=== PATIENT | female | born 1975 | race African-American/Black ===

== ENCOUNTER 2019-05-10 23:39 | Emergency (ER) | payer OTHER ==
[~2019-05-10] VITALS: Ht 144.8 cm; Wt 67.6 kg
[2019-05-11 00:14] LABS: ABSOLUTE NEUTROPHILS 3.6 thou/uL (1.4-8.2); EOSINOPHILS 1.4 % (0.0-3.0); HEMOGLOBIN 13.1 gm/dL (12.0-15.0); LYMPHOCYTES 53.4 % (24.0-44.0); MCH 29.8 pg (26.0-34.0); MCHC 33.7 g/dL (28.0-37.0); MCV 88.4 fL (80.0-100.0); MONOCYTES 7.2 % (1.0-8.0); PLATELET COUNT 329 thou/uL (150-400); RBC 4.41 mil/uL (4.20-5.00); RDW 13.9 % (10.5-14.5); WBC 9.7 thou/uL (4.0-11.0)
[2019-05-11 00:22] LABS: CALCIUM 9.3 mg/dL (8.5-10.1); CREATININE 1.2 mg/dL (0.6-1.0); POTASSIUM 3.6 mmol/L (3.5-5.1)
[2019-05-11 00:28] LABS: ALBUMIN 3.9 g/dL (3.4-5.0); TOTAL BILIRUBIN 0.2 mg/dL (<0.1-1.0); TOTAL PROTEIN 9.1 g/dL (6.4-8.2)
[2019-05-11] MEDS ORDERED: REGLAN 10 MG TA10 MG PO (01:28)
[2019-05-11 01:49] VITALS: BP 113/26
== END 2019-05-11 01:50 | disposition home or self-care (01) ==
LOC: ER 23:39
PROVIDERS: Emergency Medicine
DX: R51 Headache (principal); E78.00 Pure hypercholesterolemia, unspecified

== ENCOUNTER 2020-01-11 23:52 | Emergency (ER) | payer OTHER ==
[~2020-01-11] VITALS: Ht 144.8 cm; Wt 81.7 kg
--- NOTE | ~2020-01-11 | EMS ---
[facility] [address] [place] [address] EMS Patient Care Report Name: MERCEDES QUEVEDO Room #: REG [facility].#: [id number] Admission: 01/11/20 Attend Phys: Discharge: Date of : 75 Report #: [id number] THIS REPORT FOR: //name// Report Transmitted: 01/12/2020 01:28 EMS Care Summary [place], [place]/[facility] Incident [id number] @ 01/11/2020 23:01 Incident Location [id number] [place] [address] Patient MERCEDES QUEVEDO Female, 44 Years 1975 Patient Address [id number] [place] [address] Patient History Seizures, Chief Complaint Fever Disposition Transported No Lights/[place] Dispatch Reason Convulsions/Seizure Transported To [facility] Narrative Arrived on the scene for a 44 y/o female that is lying in a bed in the back of the house. Pt isn't communicating verbally at all but is shaking her head yes and no to those types of questions. Another female is lying next to her and said that the Pt was at a motel with her since Sunday and just got back earlier tonight. Pt is wearing a hoodie and is shivering and saying that she is cold. Pt is warm to the touch. Pt does not have a cough. Pt is very warm to the touch. Went back to the ambulance and put on a gown and got a mask for the Pt. Put a mask on the Pt and had family help me get the Pt from the [facility] [address] [place] [address] EMS Patient Care Report Name: MERCEDES QUEVEDO Room #: REG [facility].#: [id number] Admission: 01/11/20 Attend Phys: Discharge: Date of : 75 Report #: [id number] bed onto the stair chair. Wheeled the Pt from the house to the cot. Able to get the Pt from the chair to the cot with no help from the Pt. Kept my other crew members back due to possible Covid-19. See Pt Assessment Possible Covid-19 See Flow Chart. Transported to the hospital. Enroute, Pt just lied on the cot and still giving vague answers. No other changes or incidents. Transferred Pt from the cot to the bed. Transferred care to receiving facility. Initial Vitals @23:45P: 96,R: 16,BP: 126/81,Pain: 0/10,GCS: 13,CO: 12,SpO2: 99,Revised Trauma: 12, @23:29P: 102,R: 16,BP: 142/74,GCS: 13,Temp: 100.3F,CO: 7,SpO2: 99,Revised Trauma: 12, Assessments @23:10MENTAL:Person Oriented,Time Oriented,Event Oriented,Place Oriented,SKIN:Hot,HEENT:Head/Face: No Abnormalities,Eyes: No Abnormalities,Neck/Airway: No Abnormalities,LUNG SOUNDS:General: No Abnormalities,Left Upper: No Abnormalities,Right Upper: No Abnormalities,Left Lower: No Abnormalities,Right Lower: No Abnormalities,ABDOMEN:General: No Abnormalities,Left Upper: No Abnormalities,Right Upper: No Abnormalities,Left Lower: No Abnormalities,Right Lower: No Abnormalities,PELVIS//GI:No Abnormalities,EXTREMITIES:Left Arm: No Abnormalities,Right Arm: No Abnormalities,Left Leg: No Abnormalities,Right Leg: No Abnormalities,PULSE:Radial: 2+ Normal,NEURO:Weakness Left-Sided,Weakness Right-Sided, Impression COVID-19 - Suspected - no known exposure Procedures @23:10ALS AssessmentResponse: UnchangedSucceeded Timeline 23:00,Call Received 23:00,Dispatch Notified 23:01,Dispatched 23:03,En Route 23:10,On Scene 23:10,At Patient 23:10,ALS Assessment,Response: UnchangedSucceeded, 23:29,Depart Scene [facility] [address] [place] [address] EMS Patient Care Report Name: MERCEDES QUEVEDO Room #: REG [facility]#: [id number] Admission: 01/11/20 Attend Phys: Discharge: Date of : 75 Report #: [id number] 23:29,BP: 142/74 M,PULSE: 102,RR: 16 R,SPO2: 99 Ox,ETCO2: ,BG: ,PAIN: ,GCS: 13, 23:45,BP: 126/81 M,PULSE: 96,RR: 16 R,SPO2: 99 Ox,ETCO2: ,BG: ,PAIN: 0,GCS: 13, 23:45,At Destination 00:07,Call Closed Disclaimer v1.1 Copyright 2020 [employer] This EMS Care Summary contains data elements from the applicable legal record (which may be displayed differently). It is designed to provide pertinent information for the following purposes: continuity of care, clinical quality, and state data reporting. The complete legal record is available to ED staff and administrators of the receiving hospital in [employer]'s Patient Tracker. All data is provided "as is."
--- NOTE | ~2020-01-11 | EMS ---
[facility] [address] [place] [address] EMS Patient Care Report Name: MERCEDES QUEVEDO [id number] Admission: 01/11/20 Attend Phys: Discharge: Date of : 75 Report #: [id number] THIS REPORT FOR: //name// Report Transmitted: 01/12/2020 01:16 EMS Care Summary [place], [place]/[facility] Incident [id number] @ 01/11/2020 23:01 Incident Location [id number] [place] [address] Patient MERCEDES QUEVEDO Female, 44 Years 1975 Patient Address [id number] [place] [address] Patient History Seizures, Chief Complaint Fever Disposition Transported No Lights/[place] Dispatch Reason Convulsions/Seizure Transported To [facility] Narrative Arrived on the scene for a 44 y/o female that is lying in a bed in the back of the house. Pt isn't communicating verbally at all but is shaking her head yes and no to those types of questions. Another female is lying next to her and said that the Pt was at a motel with her since Sunday and just got back earlier tonight. Pt is wearing a hoodie and is shivering and saying that she is cold. Pt is warm to the touch. Pt does not have a cough. Pt is very warm to the touch. Went back to the ambulance and put on a gown and got a mask for the Pt. Put a mask on the Pt and had family help me get the Pt from the [facility] [address] [place] [address] EMS Patient Care Report Name: MERCEDES QUEVEDO Room #: REG [facility].#: [id number] Admission: 01/11/20 Attend Phys: Discharge: Date of : 75 Report #: [id number] bed onto the stair chair. Wheeled the Pt from the house to the cot. Able to get the Pt from the chair to the cot with no help from the Pt. Kept my other crew members back due to possible Covid-19. See Pt Assessment Possible Covid-19 See Flow Chart. Transported to the hospital. Enroute, Pt just lied on the cot and still giving vague answers. No other changes or incidents. Transferred Pt from the cot to the bed. Transferred care to receiving facility. Initial Vitals @23:45P: 96,R: 16,BP: 126/81,Pain: 0/10,GCS: 13,CO: 12,SpO2: 99,Revised Trauma: 12, @23:29P: 102,R: 16,BP: 142/74,GCS: 13,Temp: 100.3F,CO: 7,SpO2: 99,Revised Trauma: 12, Assessments @23:10MENTAL:Person Oriented,Time Oriented,Event Oriented,Place Oriented,SKIN:Hot,HEENT:Head/Face: No Abnormalities,Eyes: No Abnormalities,Neck/Airway: No Abnormalities,LUNG SOUNDS:General: No Abnormalities,Left Upper: No Abnormalities,Right Upper: No Abnormalities,Left Lower: No Abnormalities,Right Lower: No Abnormalities,ABDOMEN:General: No Abnormalities,Left Upper: No Abnormalities,Right Upper: No Abnormalities,Left Lower: No Abnormalities,Right Lower: No Abnormalities,PELVIS//GI:No Abnormalities,EXTREMITIES:Left Arm: No Abnormalities,Right Arm: No Abnormalities,Left Leg: No Abnormalities,Right Leg: No Abnormalities,PULSE:Radial: 2+ Normal,NEURO:Weakness Left-Sided,Weakness Right-Sided, Impression COVID-19 - Suspected - no known exposure Procedures @23:10ALS AssessmentResponse: UnchangedSucceeded Timeline 23:00,Call Received 23:00,Dispatch Notified 23:01,Dispatched 23:03,En Route 23:10,On Scene 23:10,At Patient 23:10,ALS Assessment,Response: UnchangedSucceeded, 23:29,Depart Scene [facility] [address] [place] [address] EMS Patient Care Report Name: MERCEDES QUEVEDO Room #: REG [facility]#: [id number] Admission: 01/11/20 Attend Phys: Discharge: Date of : 75 Report #: [id number] 23:29,BP: 142/74 M,PULSE: 102,RR: 16 R,SPO2: 99 Ox,ETCO2: ,BG: ,PAIN: ,GCS: 13, 23:45,BP: 126/81 M,PULSE: 96,RR: 16 R,SPO2: 99 Ox,ETCO2: ,BG: ,PAIN: 0,GCS: 13, 23:45,At Destination 00:07,Call Closed Disclaimer v1.1 Copyright 2020 [employer] This EMS Care Summary contains data elements from the applicable legal record (which may be displayed differently). It is designed to provide pertinent information for the following purposes: continuity of care, clinical quality, and state data reporting. The complete legal record is available to ED staff and administrators of the receiving hospital in [employer]'s Patient Tracker. All data is provided "as is."
[~2020-01-11 23:52] MED LIST: REGLAN 10 MG TA10 MG PO
[2020-01-12 00:39] LABS: HEMATOCRIT 37.9 % (37.0-47.0); HEMOGLOBIN 12.5 gm/dL (12.0-15.0); MCH 29.8 pg (26.0-34.0); MCV 90.3 fL (80.0-100.0); PLATELET COUNT 303 thou/uL (150-400); RDW 14.6 % (10.5-14.5); WBC 10.1 thou/uL (4.0-11.0)
[2020-01-12 00:47] LABS: CREATININE 1.2 mg/dL (0.6-1.0); POTASSIUM 3.2 mmol/L (3.5-5.1)
[2020-01-12 00:53] LABS: ALBUMIN 3.6 g/dL (3.4-5.0); TOTAL BILIRUBIN 0.2 mg/dL (<0.1-1.0)
[2020-01-12 01:13] LABS: URINE BILIRUBIN NEGATIVE (Negative); URINE BLOOD TRACE (Negative); URINE CLARITY CLEAR; URINE COLOR YELLOW; URINE GLUCOSE-RANDOM* NEGATIVE (Negative); URINE KETONES NEGATIVE (Negative); URINE LEUKOCYTES-REFLEX TRACE (Negative); URINE NITRITE-REFLEX NEGATIVE (Negative); URINE PROTEIN (DIPSTICK) NEGATIVE (Negative); URINE SPECIFIC GRAVITY 1.015 (1.005-1.035); URINE UROBILINOGEN 0.2 E.U./dl (0.2-1.0)
[2020-01-12 01:24] LABS: ABSOLUTE NEUTROPHILS 2.3 thou/uL (1.4-8.2); ATYPICAL LYMPHS 4 %
[2020-01-12 02:45] VITALS: BP 135/78
[2020-01-12] MEDS ORDERED: ZOFRAN ODT4 MG PO (02:47)
[2020-01-12] MEDS ORDERED: VENTOLIN HFA 1818 GM INH (02:47)
[2020-01-12] MEDS ORDERED: TYLENOL EXTRA500 MG PO (02:47)
== END 2020-01-12 03:10 | disposition home or self-care (01) ==
LOC: ER 23:52
PROVIDERS: Emergency Medicine Emergency Medical Services
DX: J06.9 Acute upper respiratory infection, unspecified (principal); R11.2 Nausea with vomiting, unspecified; R41.0 Disorientation, unspecified; E78.00 Pure hypercholesterolemia, unspecified; G43.909 Migraine, unspecified, not intractable, without status migrainosus; I10 Essential (primary) hypertension

== ENCOUNTER 2020-02-19 03:46 | Emergency (ER) | payer OTHER ==
[~2020-02-19] VITALS: Ht 144.8 cm; Wt 84.8 kg
[~2020-02-19 03:46] MED LIST changes: +TYLENOL EXTRA500 MG PO; +VENTOLIN HFA 1818 GM INH; +ZOFRAN ODT4 MG PO
[2020-02-19] MEDS ORDERED: POTASSIUM CHLO10 ME1 PO (04:09)
[2020-02-19] MEDS ORDERED: levetiracetam PO (04:11)
[2020-02-19 04:51] VITALS: BP 134/73
[2020-02-19] MEDS ORDERED: VENTOLIN HFA 1818 GM INH (05:01)
== END 2020-02-19 05:21 | disposition home or self-care (01) ==
LOC: ER 03:46
DX: J45.901 Unspecified asthma with (acute) exacerbation (principal); I10 Essential (primary) hypertension; G43.909 Migraine, unspecified, not intractable, without status migrainosus; E78.00 Pure hypercholesterolemia, unspecified

== ENCOUNTER 2020-04-06 20:14 | Emergency (ER) | payer OTHER ==
[~2020-04-06] VITALS: Ht 144.8 cm; Wt 84.8 kg
--- NOTE | ~2020-04-06 | EEG ---
[facility] [place] [address] ELECTROENCEPHALOGRAM Name: MERCEDES QUEVEDO Room #: DEP [facility].#: [id number] Admission: 04/06/20 Attend Phys: Discharge: 04/07/20 Date of : 75 Report #: [id number] THIS REPORT FOR: //name// CC: FAM alice Hughes DATE OF SERVICE: 04/06/2020 This patient is being evaluated for seizure. EEG was done by placing the electrode by standard 10-20 system of electrode placement. Both referential and sequential montages were used for recording. Background activity in this patient's EEG appeared to be about 10 Hz and 30 microvolt. Photic stimulation is unremarkable. Throughout the record, no active epileptiform activity was noticed. IMPRESSION: In spite of the patient's history of __, the EEG does not show any active epileptiform activity. Thank you very much for this referral. By: 08 11 Hussein Ritchie MD /nt
--- NOTE | ~2020-04-06 | EMS ---
[address] [address] EMS Patient Care Report Name: MERCEDES QUEVEDO [id number] Admission: 04/06/20 Attend Phys: Discharge: Date of : 75 Report #: [id number] THIS REPORT FOR: //name// Report Transmitted: 04/06/2020 19:50 EMS Care Summary [place], [place]/[facility] Incident [id number] @ 04/06/2020 19:36 Incident Location [id number] [place] [address] Patient MERCEDES QUEVEDO Female, 44 Years 1975 Patient Address [address] [place] [address] Patient History Asthma,Seizures,Migraine, Patient Allergies Other drug allergy, Patient Medications Potassium, Levetiracetam, Lamotrigine, Chief Complaint SEIZURE ACTIVITY Disposition Transported No Lights/[place] Dispatch Reason Convulsions/Seizure Transported To [facility] Narrative UPON ARRIVAL PT SITTING UPRIGHT IN CHAIR CONSCIOUS NOT ALERT. PT UNABLE TO ANSWER ANY QUESTIONS OR FOLLOW COMMANDS. FAMILY STATES THIS IS WHAT PT GETS LIKE BEFORE SHE HAS SEIZURES. PT HAS ALSO BEEN C/O A HEADACHE SINCE LAST NIGHT. PT LIFTED TO COT. PT RESPIRATIONS NORMAL BUT SHALLOW, PT MAINTAINS [address] [address] EMS Patient Care Report Name: MERCEDES QUEVEDO Room #: REG [facility]#: [id number] Admission: 04/06/20 Attend Phys: Discharge: Date of : 75 Report #: [id number] THROUGHOUT TRANSPORT. PT HAS SLIGHT TWITCHING IN ALL EXTREMITIES. PT TRANSPORTED TO [facility]. Initial Vitals @19:52P: 112,BP: 148/101, @20:02P: 111,R: 30,BP: 159/99,GCS: 8,CO: 14,SpO2: 99,Revised Trauma: 9, @19:46P: 134,R: 30,BP: 171/116,Pain: 0/10,GCS: 8,Glucose: 118,SpO2: 99,Revised Trauma: 9, Assessments @19:42MENTAL:Unresponsive,SKIN:No Abnormalities,HEENT:Head/Face: No Abnormalities,Neck/Airway: No Abnormalities,LUNG SOUNDS:General: No Abnormalities,ABDOMEN:General: No Abnormalities,PELVIS//GI:EXTREMITIES:Left Arm: No Abnormalities,Right Arm: No Abnormalities,Left Leg: No Abnormalities,Right Leg: No Abnormalities,PULSE:Radial: 2+ Normal,NEURO:Seizures,Tremors, Impression Seizures Procedures @19:42ALS AssessmentResponse: UnchangedSucceeded@19:50Saline Lock 0cc (20 ga) Site: Antecubital-LeftResponse: UnchangedFailed@19:503-Lead ECGResponse: UnchangedSucceeded@19:50Saline Lock 0cc (20 ga) Site: Antecubital-RightResponse: UnchangedFailed Timeline 19:35,Call Received 19:35,Dispatch Notified 19:36,Dispatched 19:37,En Route 19:40,On Scene 19:41,At Patient 19:42,ALS Assessment,Response: UnchangedSucceeded, 19:46,BP: 171/116 M,PULSE: 134,RR: 30 R,SPO2: 99 Ox,ETCO2: ,B,PAIN: 0,GCS: 8, 19:50,Saline Lock 0cc 20 ga Site: Antecubital-Left,Response: UnchangedFailed, 19:50,Saline Lock 0cc 20 ga Site: Antecubital-Right,Response: UnchangedFailed, 19:50,3-Lead ECG,Response: UnchangedSucceeded, 19:52,BP: 148/101 M,PULSE: 112,RR: R,SPO2: Ox,ETCO2: ,BG: ,PAIN: ,GCS: , 19:52,Depart Scene 20:02,BP: 159/99 M,PULSE: 111,RR: 30 R,SPO2: 99 Ox,ETCO2: ,BG: ,PAIN: ,GCS: 8, 20:06,At Destination 20:32,Call Closed Disclaimer [address] [address] EMS Patient Care Report Name: MERCEDES QUEVEDO Room #: REG [facility]#: [id number] Admission: 04/06/20 Attend Phys: Discharge: Date of : 75 Report #: [id number] v1.1 Copyright 2020 [employer] This EMS Care Summary contains data elements from the applicable legal record (which may be displayed differently). It is designed to provide pertinent information for the following purposes: continuity of care, clinical quality, and state data reporting. The complete legal record is available to ED staff and administrators of the receiving hospital in [employer]'s Patient Tracker. All data is provided "as is."
[~2020-04-06 20:14] MED LIST changes: +POTASSIUM CHLO10 ME1 PO; +levetiracetam PO
[2020-04-06 20:43] LABS: HEMATOCRIT 41.5 % (37.0-47.0); HEMOGLOBIN 13.8 gm/dL (12.0-15.0); MCH 30.1 pg (26.0-34.0); MCHC 33.3 g/dL (28.0-37.0); MCV 90.4 fL (80.0-100.0); PLATELET COUNT 329 thou/uL (150-400); RBC 4.59 mil/uL (4.20-5.00); RDW 14.1 % (10.5-14.5); WBC 8.7 thou/uL (4.0-11.0)
[2020-04-06 20:53] LABS: ANION GAP 9 mmol/L (7-16); BUN 9 mg/dL (7-18); CALCIUM 9.3 mg/dL (8.5-10.1); CHLORIDE 102 mmol/L (98-107); CO2 27 mmol/L (21-32); CREATININE 1.4 mg/dL (0.6-1.0); GLUCOSE 105 mg/dL (74-106); POTASSIUM 3.2 mmol/L (3.5-5.1); SODIUM 138 mmol/L (136-145)
[2020-04-06 21:03] LABS: ALBUMIN 3.9 g/dL (3.4-5.0); SGOT 15 U/L (15-37); SGPT 14 U/L (30-65); TOTAL BILIRUBIN 0.4 mg/dL (0.2-1.0); TOTAL PROTEIN 8.9 g/dL (6.4-8.2); TROPONIN-I <0.06 ng/mL (<0.06)
[2020-04-06 21:30] LABS: URINE BILIRUBIN NEGATIVE (Negative); URINE BLOOD NEGATIVE (Negative); URINE CLARITY CLEAR; URINE COLOR YELLOW; URINE GLUCOSE-RANDOM* NEGATIVE (Negative); URINE KETONES NEGATIVE (Negative); URINE LEUKOCYTES-REFLEX NEGATIVE (Negative); URINE NITRITE-REFLEX NEGATIVE (Negative); URINE PROTEIN (DIPSTICK) TRACE (Negative)
[2020-04-06] MEDS ORDERED: LAMOTRIGINE250 MG PO (21:30)
[2020-04-06 21:34] LABS: ABSOLUTE NEUTROPHILS 2.2 thou/uL (1.4-8.2); ANISOCYTOSIS 1+
[2020-04-06 22:04] LABS: AMP/METHAMP Negative (Negative); BARBITURATES Negative (Negative); BENZODIAZEPINES Negative (Negative); COCAINE Negative (Negative); METHADONE Negative (Negative); OPIATES Negative (Negative); PCP Negative (Negative)
[2020-04-07 03:10] VITALS: BP 120/79
--- NOTE | 2020-04-07 07:47 | EKG ---
[facility] [place] [address] ELECTROCARDIOGRAM REPORT Name: MERCEDES QUEVEDO Room #: DEP [facility]#: [id number] Admission: 04/06/20 Attend Phys: Discharge: 04/07/20 Date of : 75 Report #: [id number] THIS REPORT FOR: cc: [facility] - Clinic physician unknown [facility] - Clinic physician unknown Diego Em MD [facility] THIS REPORT FOR: //name// [facility] ED Test Date: 2020-04-06 Test Time: 21:11:19 Pat Name: MERCEDES QUEVEDO Department: Room: Gender: Press Manager: [place] [id number] : 1975 Requested By: Tomeka Hughes Order Number: [id number] MD: Diego Em Measurements Intervals [place] Rate: 105 P: 44 WI: 174 QRS: 55 QRSD: 92 T: 12 QT: 330 QTc: 437 Interpretive Statements Sinus tachycardia Otherwise no significant abnormality No previous ECG available for comparison Electronically Signed On 04-07-2020 7:47:19 CDT by Diego Em [email or web address] <ELECTRONICALLY SIGNED> By: Diego Em MD, [facility] 04/07/20 0747 10 10 Diego Em MD, FAC /EPI
== END 2020-04-07 03:11 | disposition short-term general hospital (02) ==
LOC: ER 20:14
PROVIDERS: Student in an Organized Health Care Education/Training Program
DX: R41.82 Altered mental status, unspecified (principal); R56.9 Unspecified convulsions; E78.00 Pure hypercholesterolemia, unspecified; G43.909 Migraine, unspecified, not intractable, without status migrainosus; I10 Essential (primary) hypertension; Z79.899 Other long term (current) drug therapy